=== PATIENT | female | born 1935 | race Caucasian/White ===

== ENCOUNTER 2016-11-21 09:22 | Observation (INO) ==
[2016-11-21] MEDS ORDERED: ALPRAZolam 0.5 MG TABLET PO PRN (13:52)
[2016-11-21] MEDS ORDERED: Ondansetron 4 MG/2 ML VIAL IVP PRN (14:02)
[2016-11-21] MEDS ORDERED: Acetaminophen 325 MG TABLET PO PRN (14:02)
[2016-11-21] MEDS ORDERED: *HR* Morphine 2 MG/ML SYRINGE IVP PRN (14:02)
[2016-11-21] MEDS ORDERED: Naloxone 0.4 MG/ML INJ IVP PRN (14:02)
[2016-11-21] MEDS ORDERED: Nitroglycerin 0.4 MG TAB.SUBL SL PRN (14:16)
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
[2016-11-21] MEDS: rOPINIRole 1 MG TABLET PO SCH ×2 (17:11→21:37)
[2016-11-21] MEDS ORDERED: traZODone 50 MG TABLET PO SCH (21:00)
[2016-11-21] MEDS ORDERED: Gabapentin 300 MG CAPSULE PO SCH (21:07)
[2016-11-22 04:44] LABS: Chol/HDL Ratio 3.7 (0-4.9)
--- NOTE | 2016-11-22 08:19 | ECHO - Doppler Report ---
Echocardiogram Name: Mirna Martínez Date of Study: 11/21/2016 Date: 1935 Ht: 65.0 in Medical Record#: [id number] Age: 81 Wt: 178.0 lb Gender: Female BSA: 1.88 Order #: [id number] Location: [facility] Room #: 3B14 Reading Physician: Tab Lee MD, [facility] Junior Business Analyst: Serina Murray Ordering Physician: Eris Yuen MD Primary Physician: Bismark Jeffries CNP Indications: Malaise, left arm pain, on evaluation for ACS Impressions: Normal left ventricular size and systolic function, LVEF 55-60%. Atypical septal motion consistent with bundle branch block. Moderate asymmetric left ventricular septal hypertrophy. No evidence of LVOT obstruction. Moderate left ventricular diastolic dysfunction. Normal right ventricular size and function. Mildly dilated left atrium. Mild tricuspid regurgitation. Mild-moderate pulmonary hypertension. Estimated RVSP = 46 mmHg. Left Ventricular Wall Motion: Rest Echo Findings All wall segments showed normal motion. Findings: Study Quality * Technically adequate exam. ECG Findings * Sinus rhythm with BBB. Left Ventricle * Normal left ventricular size and systolic function, LVEF 55-60%. * Atypical septal motion consistent with bundle branch block. * Normal LV chamber size. * Moderate asymmetric left ventricular septal hypertrophy. No evidence of LVOT obstruction. * Moderate left ventricular diastolic dysfunction. Right Ventricle * Normal right ventricular size and function. Left Atrium * Mildly dilated left atrium. Right Atrium * Normal right atrial size. Aorta * Normally sized aortic root. Pericardium * There is no pericardial effusion present. IVC * Normal IVC dimensions and inspiratory collapse. Aortic Valve * Trileaflet aortic valve. * No aortic stenosis. * No aortic regurgitation. Mitral Valve * Normal mitral valve structure. * No mitral stenosis. * Trace mitral regurgitation. Tricuspid Valve * Normal tricuspid valve structure. * No tricuspid stenosis. * Mild tricuspid regurgitation. * Mild-moderate pulmonary hypertension. Estimated RVSP = 46 mmHg. Pulmonic Valve * Pulmonic valve not well visualized. * No pulmonic stenosis. * Trace pulmonic regurgitation. History Hypertension Family History of CAD Congestive Heart Failure 10/01/2012 a Previous Echo was performed. Measurements: BP: 117/ 70 2D Normal Values RVIDd: 2.80 cm IVSd: 1.50 cm 0.6 - 1.0 cm LVIDd: 3.70 cm 3.7 - 5.6 cm LVPWd: .90 cm 0.6 - 1.1 cm LVIDs: 2.30 cm 1.5 - 3.6 cm AO: 2.60 cm < 4.0 cm LA volume: 65 Mitral Valve Peak E:.93 m/sec Peak A:.83 m/sec E/A Ratio:1.1 Peak E' Lat Cheng:5.17 cm/s Peak E' Med Cheng:4.48 cm/s E/E' Lat Ratio:17.9 E/E' Med Ratio:20.7 Tricuspid Valve TV Regurg Peak Grad: 43.00mmHg TV Regurg Peak Cheng: 3.27m/sec Updated by Tab Lee MD, [facility] on 11/22/2016 8:14:48 AM electronically signed on 11/22/2016 8:15:56 AM with status of Final Wall Motion Daugherty: 1=Normal, 2=Hypokinesis, 3=Akinesis, 4=Dyskinesis, 5=Aneurysmal, 6=Hyperkinetic, X=Not Visualized (Blank)=Missing
[2016-11-22] MEDS ORDERED: Gabapentin 300 MG CAPSULE PO SCH (09:00)
[2016-11-22] MEDS ORDERED: Cyanocobalamin (B-12) 1,000 MCG TABLET PO SCH (09:00)
[2016-11-22] MEDS ORDERED: Anastrozole 1 MG TABLET PO SCH (09:00)
[2016-11-22] MEDS ORDERED: Regadenoson 0.4 MG/5 ML SYRINGE IVP ONE (10:03)
[2016-11-22 12:13] VITALS: BP 114/74
[2016-11-22] MEDS: rOPINIRole 1 MG TABLET PO SCH (12:59)
--- NOTE | 2016-11-22 13:22 | Nuclear Medicine Stress Report ---
Regadenoson Nuclear Stress Name: Mirna Martínez Date of Study: 11/22/2016 Date: 1935 Ht: 65.0 in Medical Record#: [id number] Age: 81 Wt: 172.0 lb Gender: Female Order #: [id number] Location: [facility] Room: [facility] Supervising Provider: Matt Hudson CNP Reading Physician: Tab Lee MD, [facility] Ordering Physician: Elana Alegre CNP Primary Care Physician: Bismark Jeffries CNP Stress Technologist: Guilherme Huynh CRT Plant Clerk: Khushi Mann Indications: Chest Pain Impression: Pharmacologic stress ECG is non-diagnostic for ischemia due to baseline LBBB. Gated LVEF > 70%. Perfusion imaging was negative for ischemia or infarct. History: Hypertension Stress Test Summary: Stress Test Type: Pharmacologic Baseline Information: Initial Heart Rate: 81 Blood Pressure: 138/80 Stress Information: Test Terminated Due to (primary): As per protocol Maximum Blood Pressure: 134/80 Maximum Heart Rate: 112 Percent Maximum Heart Rate Achieved: 79 Double Product: [id number] Symptoms: No chest symptoms Nuclear Summary: SPECT myocardial perfusion imaging using Tc99m Sestamibi given intravenously was performed at rest and following cardiac stress testing. The resting images were obtained following initial dose of 10.6 mCi. Following stress an additional dose of 30.1 mCi was given at peak exercise or 30 seconds post regadenoson infusion. Findings: Stress Note * Resting ECG demonstrated sinus rhythm with LBBB. * No baseline arrhythmias were noted. * Patient had no chest pain during stress. * No arrhythmias were noted during stress. * Pharmacologic stress ECG is non-diagnostic for ischemia due to baseline LBBB. Hemodynamic responses * Normal hemodynamic responses to pharmacologic stress. Study Quality * Study quality is average. Gated EF > 70% * Gated LVEF > 70%. Left Ventricle * The left ventricle is not dilated. * Normal Segmental Perfusion in rest. * Normal segmental perfusion in stress. * Apical artifact noted. TID * No evidence of transient ischemic dilatation. Updated by Tab Lee MD, [facility] on 11/22/2016 1:16:04 PM electronically signed on 11/22/2016 1:17:34 PM with status of Final
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
--- NOTE | 2016-11-22 16:35 | Electrocardiograph Report ---
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
== END 2016-11-22 14:40 | disposition home or self-care (01) ==
LOC: 3BNU
PROVIDERS: ADMIT Family Medicine; ATTEND Nurse Practitioner Family